=== PATIENT | female | born 1945 | race Two or more races ===

== ENCOUNTER 2023-07-16 10:13 | Emergency (ER) | payer OTHER ==
[~2023-07-16] VITALS: Ht 157.5 cm; Wt 63.5 kg
[2023-07-16] MEDS ORDERED: PLAVIX75 MG PO (10:24)
[2023-07-16] MEDS ORDERED: CALAN SR 120MG120 MG PO (10:25)
[2023-07-16] MEDS ORDERED: COZAAR50 MG PO (10:25)
[2023-07-16 11:07] LABS: HEMATOCRIT 40.6 % (36.0-45.00); HEMOGLOBIN 13.3 g/dL (12.0-15.00); MEAN CELL VOLUME 82.7 fL (80.00-100.00); MEAN CORPUSCULAR HEMOGLOBIN 27.1 pg (27.00-32.0); MEAN CORPUSCULAR HGB CONC 32.7 g/dl (32.0-36.0); PLATELET COUNT 286 K/uL (150-450); RED BLOOD COUNT 4.91 M/uL (4.00-6.00); RED CELL DISTRIBUTION WIDTH 14.4 % (11.5-14.5)
[2023-07-16 11:29] LABS: ALBUMIN 3.3 gm/dL (3.4-5.0); BILIRUBIN TOTAL 0.33 mg/dL (0.3-1.2); CALCIUM 9.7 mg/dL (8.5-10.1); CREATININE SERUM 0.68 mg/dL (0.55-1.02); GFR 83.68; GLOBULINA 4.6 G/DL (2.4-3.5); POTASSIUM 3.57 mEq/L (3.5-5.1); TOTAL PROTEIN 7.9 gm/dL (6.4-8.2)
[2023-07-16 14:01] LABS: URINE APPEARANCE Clear; URINE BILIRRUBIN Negative (NEGATIVE); URINE BLOOD Negative; URINE COLOR Yellow; URINE GLUCOSE Negative (NEGATIVE); URINE LEUKOCYTE Negative; URINE NITRATE Negative; URINE PROTEIN Negative (NEGATIVE); URINE UROBILINOGEN 0.2 E.U./dl
[2023-07-16 14:05] LABS: URINE EPITHELIAL CELLS 3.8 uL (0.0-38.8); URINE RBC 3.3 uL (0.0-20.8)
[2023-07-16] MEDS ORDERED: LEVSIN/SL0.125 MG SL (17:44)
[2023-07-16] MEDS ORDERED: PEPCID AC20 MG PO (17:44)
[2023-07-16] MEDS ORDERED: NORFLEX100MG PO (18:11)
== END 2023-07-16 19:13 | disposition home or self-care (01) ==
LOC: ER 10:15
PROVIDERS: Emergency Medicine
DX: R10.84 Generalized abdominal pain (principal); K57.90 Diverticulosis of intestine, part unspecified, without perforation or abscess without bleeding; I10 Essential (primary) hypertension; Z88.8 Allergy status to other drugs, medicaments and biological substances